=== PATIENT | male | born 1970 | race Caucasian/White ===

== ENCOUNTER 2017-11-29 07:37 | Inpatient (IN) | payer OTHER ==
[~2017-11-29] VITALS: Ht 170.2 cm; Wt 81.6 kg
[2017-11-29 08:19] LABS: BASOPHIL % 1.4 % (0-2); PLATELET COUNT 266 x10^3mcL (130-400); RED CELL DISTRIBUTION WIDTH 14.1 % (11.5-14.5)
[2017-11-29 08:27] LABS: CALCIUM 8.1 mg/dL (8.5-10.1); CHLORIDE SERUM 102 mmol/L (98-107); CREATININE SERUM 0.8 mg/dL (0.7-1.3); GFR1 > 60 mL/min; GLUCOSE SERUM 98 mg/dL (74-106); POTASSIUM SERUM 3.8 mmol/L (3.5-5.1); SODIUM SERUM 137 mmol/L (136-145)
[2017-11-29 08:32] LABS: ALKALINE PHOSPHATASE 82 U/L (46-116); ALT/SGPT 16 U/L (16-63); AST/SGOT 18 U/L (15-37); BILIRUBIN TOTAL 0.4 mg/dL (0.20-1.00); TOTAL PROTEIN, SERUM 7.9 g/dL (6.4-8.2)
[2017-11-29 08:33] LABS: ALBUMIN 2.9 g/dL (3.4-5.0)
[2017-11-29 10:43] VITALS: BP 158/106
[2017-11-29 11:45] VITALS: BP 139/91
[2017-11-29 15:18] LABS: microscopic required? NO
[2017-11-29 15:27] LABS: urine erythrocyte NEGATIVE (NEGATIVE)
[2017-11-29 17:35] VITALS: BP 131/96; BP 135/68
[2017-11-29 20:48] VITALS: BP 120/73
[2017-11-30 05:02] VITALS: BP 132/88
[2017-11-30 05:42] LABS: BASOPHIL % 0.4 % (0-2); PLATELET COUNT 246 x10^3mcL (130-400); RED CELL DISTRIBUTION WIDTH 14.1 % (11.5-14.5)
[2017-11-30 06:03] LABS: CALCIUM 8.2 mg/dL (8.5-10.1); CARBON DIOXIDE 27.3 mmol/L (21-32); CHLORIDE SERUM 104 mmol/L (98-107); CREATININE SERUM 0.8 mg/dL (0.7-1.3); GFR1 > 60 mL/min; GLUCOSE SERUM 95 mg/dL (74-106); POTASSIUM SERUM 3.6 mmol/L (3.5-5.1); SODIUM SERUM 136 mmol/L (136-145)
[2017-11-30 08:48] VITALS: BP 131/72
[2017-11-30 16:56] VITALS: BP 123/80
[2017-11-30 22:48] VITALS: BP 112/74
[2017-12-01 05:37] VITALS: BP 103/69
[2017-12-01 08:33] VITALS: BP 116/80
[2017-12-01 08:34] VITALS: BP 118/81
[2017-12-01 11:28] LABS: CALCIUM 8.6 mg/dL (8.5-10.1); CARBON DIOXIDE 28.6 mmol/L (21-32); CHLORIDE SERUM 102 mmol/L (98-107); CREATININE SERUM 0.7 mg/dL (0.7-1.3); GFR1 > 60 mL/min; GLUCOSE SERUM 100 mg/dL (74-106); POTASSIUM SERUM 3.7 mmol/L (3.5-5.1); SODIUM SERUM 138 mmol/L (136-145)
[2017-12-01 11:33] LABS: BASOPHIL % 0.3 % (0-2); PLATELET COUNT 299 x10^3mcL (130-400); RED CELL DISTRIBUTION WIDTH 13.8 % (11.5-14.5)
== END 2017-12-01 12:45 | disposition left against medical advice (07) | DRG 383 ==
LOC: ED 07:37 → MU 08:54
PROVIDERS: Emergency Medicine; Internal Medicine
DX: L03.012 Cellulitis of left finger (principal); F10.10 Alcohol abuse, uncomplicated; F17.210 Nicotine dependence, cigarettes, uncomplicated; I10 Essential (primary) hypertension; V19.9XXA Pedal cyclist (driver) (passenger) injured in unspecified traffic accident, initial encounter; Y93.89 Activity, other specified; Y92.89 Other specified places as the place of occurrence of the external cause; Y99.8 Other external cause status; Y90.9 Presence of alcohol in blood, level not specified
CPT/HCPCS: G0480; J0295; J1650; J2270; J2543; J3370; J3490; J7030; J7050

== ENCOUNTER 2017-12-09 14:20 | Emergency (ER) | payer OTHER ==
[~2017-12-09] VITALS: Ht 172.7 cm; Wt 82.1 kg
[2017-12-09 14:32] VITALS: Ht 172.7 cm; Wt 82.1 kg
[2017-12-09 15:16] VITALS: BP 132/93
== END 2017-12-09 15:16 | disposition home or self-care (01) ==
LOC: ED 14:20
DX: Z48.01 Encounter for change or removal of surgical wound dressing (principal)